=== PATIENT | female | born 1950 | race Caucasian/White ===

== ENCOUNTER 2021-11-11 10:32 | Emergency (ER) | payer MEDICARE ==
[~2021-11-11] VITALS: Ht 162.6 cm; Wt 55.9 kg
[2021-11-11 10:36] VITALS: BP 163/90
[2021-11-11] MEDS ORDERED: SYNTHROID25 MCG PO (10:43)
[2021-11-11 10:45] VITALS: BP 147/70
[2021-11-11 11:00] VITALS: BP 137/80
[2021-11-11] MEDS ORDERED: DEBROX6.5 % AD (12:03)
[2021-11-11 12:11] VITALS: BP 137/80
== END 2021-11-11 12:20 | disposition home or self-care (01) ==
LOC: ED 10:32
PROC: 3E1B78Z Irrigation of Ear using Irrigating Substance, Via Natural or Artificial Opening (ICD-10-PCS; principal; 2021-11-11)
DX: H61.23 Impacted cerumen, bilateral (principal); E03.9 Hypothyroidism, unspecified; E78.5 Hyperlipidemia, unspecified

== ENCOUNTER 2021-11-17 09:59 | Emergency (ER) | payer MEDICARE ==
[~2021-11-17] VITALS: Ht 162.6 cm; Wt 68.0 kg
[~2021-11-17 09:59] MED LIST: DEBROX6.5 % AD; SYNTHROID25 MCG PO
[2021-11-17 10:13] VITALS: BP 131/74
[2021-11-17] MEDS ORDERED: SIMVASTATIN5 MG PO (10:22)
[2021-11-17] MEDS ORDERED: LEXAPRO10 MG PO (10:23)
[2021-11-17 10:29] VITALS: BP 122/58
[2021-11-17 10:31] VITALS: BP 114/54
[2021-11-17 11:00] VITALS: BP 119/70
== END 2021-11-17 12:21 | disposition home or self-care (01) ==
LOC: ED 09:59
PROC: 3E1B78Z Irrigation of Ear using Irrigating Substance, Via Natural or Artificial Opening (ICD-10-PCS; principal; 2021-11-17)
DX: H61.23 Impacted cerumen, bilateral (principal); E03.9 Hypothyroidism, unspecified; E78.5 Hyperlipidemia, unspecified

== ENCOUNTER 2024-02-06 08:20 | Day surgery (SDC) | payer MEDICARE ==
[~2024-02-06] VITALS: Ht 162.6 cm; Wt 53.5 kg
[~2024-02-06 08:20] MED LIST changes: +ATORVASTATIN CA10 MG PO; +IBUPROFEN200 MG PO; +LEXAPRO10 MG PO; +MELOXICAM7.5 MG PO; +MULTI VIT PO; +PERCOCET 5/321 COMBO PO; +SIMVASTATIN5 MG PO
[2024-02-06] MEDS ORDERED: LACTATED RINGER'S 1,000 ML IV ONE (08:24)
[2024-02-06] MEDS ORDERED: FAMOTIDINE 10MG/ML 2ML SDV IV ONE (09:15)
[2024-02-06 11:29] VITALS: BP 133/59
[2024-02-06] MEDS ORDERED: PROPOFOL 200 MG/20 ML VIAL IV ONE (14:52)
[2024-02-06] MEDS ORDERED: LIDOCAINE HCL 2% 2ML SDV IV ONE (14:52)
[2024-02-06] MEDS ORDERED: GLYCOPYRROLATE 0.2 MG/ML IV ONE (14:52)
== END 2024-02-06 11:38 | disposition home or self-care (01) ==
LOC: ENDO 08:20 → ORM 09:45 → ENDO 10:40 → ORM 11:20 → ENDO 11:38
PROVIDERS: ATTEND Surgery
PROC: 0DJD8ZZ Inspection of Lower Intestinal Tract, Via Natural or Artificial Opening Endoscopic (ICD-10-PCS; principal; 2024-02-06)
DX: K64.8 Other hemorrhoids (principal); K64.4 Residual hemorrhoidal skin tags; E78.5 Hyperlipidemia, unspecified